=== PATIENT | female | born 1990 | race Caucasian/White ===

== ENCOUNTER 2020-01-09 09:20 | Inpatient (IN) | payer OTHER ==
[~2020-01-09] VITALS: Ht 165.1 cm; Wt 125.0 kg
--- NOTE | ~2020-01-09 | OR ---
[facility] [address] [place], [place] [address] Draft DATE OF OPERATION: 01/13/2020 SURGEON: Nae Sherman MD REHABILITATION THERAPY AIDE: Matthew Cano MD PREOPERATIVE DIAGNOSIS: Term , breech presentation. POSTOPERATIVE DIAGNOSIS: Term , breech presentation; delivered. PROCEDURE: Primary section with low segment transverse uterine incision. ANESTHESIA: Spinal. ESTIMATED BLOOD LOSS: 600 mL. DRAINS: Mckay catheter. INDICATIONS AND FINDINGS: The patient is a 29-year-old, 1, para 0, admitted at 39 weeks for primary section for breech presentation. She had a failed version approximately 2 weeks ago. At the time of surgery, she was delivered of a little boy via lower segment transverse uterine incision as a marely breech with Apgars of 9 and 9, and weight of 9 pounds 1 ounce. There was a nuchal cord x1, which was loose. DESCRIPTION OF PROCEDURE: The patient was prepped and draped in the supine position. A Pfannenstiel skin incision was made and the incision was carried down through the fascia. The incision was extended laterally. The inferior and superior fascial flaps were then created. The muscles were bluntly divided. The peritoneum opened sharply and the incision extended superiorly and inferiorly. The Frankie retractor was then placed. The uterine incision was made at the upper aspect of the peritoneal reflection. The fluid was clear at delivery. The baby was delivered to the above findings and handed off to the pediatric PATIENT NAME: ALVARO ORELLANA OPERATIVE REPORT DATE OF : 88 REPORT #: [id number] PHYSICIAN: NAE SHERMAN MD PCP: CHANELL MENDOSA MD REPORT IS CONFIDENTIAL AND NOT TO BE RELEASED WITHOUT AUTHORIZATION [facility] [address] [place], [place] [address] Draft staff in attendance. The placenta was removed manually. The uterus was explored with a lap tape assuring no remaining fragments. The edges of the incision were identified and the uterus was closed in 2 layers using 0 Monocryl. The first layer was a running locking stitch. The 2nd was a vertical imbricating stitch. An additional [id number] was required near the left angle for control of bleeding. Following this, the abdomen was irrigated, inspected, and good hemostasis was noted. The retractor was removed. The peritoneum was identified. An ACell graft was then laid over the lower segment to aid in healing. The peritoneum was then closed with a running suture of 3-0 Vicryl. The muscles were brought together in the midline with interrupted sutures of 0 Vicryl. Bleeding points were controlled with cautery. This layer was irrigated and good hemostasis was noted. ACell powder was sprinkled over the muscles to aid in healing. The fascia was then closed from each angle to the midline with a running suture of 0 Vicryl. Following this, the subcu tissue was irrigated, inspected, and bleeding points were controlled with cautery. The deep space was closed with interrupted sutures of 3-0 Vicryl. The skin was closed with tatianna. All sponge and needle counts were correct. She tolerated the procedure well and was taken to the recovery room in good condition. Nae Sherman MD PJW/MODL /[id number] cc: Matthew Cano MD Copies: MATTHEW CANO MD ~ PATIENT NAME: ALVARO ORELLANA OPERATIVE REPORT DATE OF : [birth year] REPORT #: [id number] PHYSICIAN: NAE SHERMAN MD PCP: CHANELL MENDOSA MD REPORT IS CONFIDENTIAL AND NOT TO BE RELEASED WITHOUT AUTHORIZATION
--- NOTE | 2020-01-13 11:17 | NUR ---
01/13/20 1117 Sheets,Sammie 1106 PT ARRIVED TO PACU ON RA AND VSS. PT DENIES PAIN AND NAUSEA. FBC RN AT BEDSIDE. BABY TO CHEST. IV INFUSING LR WITH 20 PIT, SITE WNL.
--- NOTE | 2020-01-14 08:44 | PR ---
[facility] [address] [facility] [place], [place] [address] Signed PP Progress Notes Datetime Report Generated by CPN: 01/14/2020 08:44 SUBJECTIVE: [id number] Pain: Within normal limits Nausea/Vomiting: Denies Flatus: Yes Vital Signs: [id number] Vital Signs: Reviewed; Within Normal Limits EXAM: [id number] Cardiovascular: Normal Respiratory: Normal Abdomen/Uterus: Abnormal Lochia: Normal Vulva/Perineum: Not Done Breasts: Not Done CVA Tenderness: Not Done Extremities: Normal Incision: Normal Progress: Normal Exam Comments: Abdomen with active BS. Fundus firm, NT @ U. H/H 9.6/29.4, WBC 10.4, plat 250k IMPRESSION/PLAN/PROCEDURES: [id number] Impression: Normal progression Other Plans: increase ambulation, shower Procedures: None Progress Notes: Doing well. Signing Physician: Nae Sherman MD Copies: ~ *Electronically Signed* 01/14/20 0844 NAE SHERMAN MD PATIENT NAME: ALVARO ORELLANA PROGRESS NOTE DATE OF : [birth year] PHYSICIAN: NAE SHERMAN MD RPT #: [id number] REPORT IS CONFIDENTIAL AND NOT TO BE RELEASED WITHOUT AUTHORIZATION
--- NOTE | 2020-01-15 07:52 | PR ---
[facility] [address] [facility] [place], [place] [address] Signed PP Progress Notes Datetime Report Generated by CPN: 01/15/2020 07:52 SUBJECTIVE: [id number] Pain: Within normal limits Nausea/Vomiting: Denies Flatus: Yes Vital Signs: [id number] Vital Signs: Reviewed; Within Normal Limits EXAM: [id number] Cardiovascular: Not Done Respiratory: Not Done Abdomen/Uterus: Abnormal Lochia: Normal Vulva/Perineum: Not Done Breasts: Not Done CVA Tenderness: Not Done Extremities: Normal Incision: Normal Progress: Normal Exam Comments: Abdomen with active BS. Fundus firm, NT @ U-1. IMPRESSION/PLAN/PROCEDURES: [id number] Impression: Normal progression Plan: Discharge Other Plans: increase ambulation, shower Procedures: None Progress Notes: Doing well. She is ready for D/C. Signing Physician: Nae Sherman MD Copies: ~ *Electronically Signed* 01/15/20 0752 NAE SHERMAN MD PATIENT NAME: ALVARO ORELLANA PROGRESS NOTE DATE OF : 88 PHYSICIAN: NAE SHERMAN MD RPT #: [id number] REPORT IS CONFIDENTIAL AND NOT TO BE RELEASED WITHOUT AUTHORIZATION
== END 2020-01-15 11:35 | disposition home or self-care (01) | DRG 788 ==
LOC: FBC 01-13 05:55
PROVIDERS: ADMIT Obstetrics & Gynecology
PROC: 10D00Z1 Extraction of Products of Conception, Low, Open Approach (ICD-10-PCS; principal; 2020-01-13 08:45)
DX: O32.1XX0 Maternal care for breech presentation, not applicable or unspecified (principal); O69.81X0 Labor and delivery complicated by cord around neck, without compression, not applicable or unspecified; Z3A.39 39 weeks gestation of pregnancy; Z37.0 Single live birth; O99.214 Obesity complicating childbirth; E66.9 Obesity, unspecified; O26.03 Excessive weight gain in pregnancy, third trimester
CPT/HCPCS: 01961; 36415; 85027; A9270; J0690; J2274; J2590; J7121

== ENCOUNTER 2020-01-20 20:51 | Emergency (ER) | payer OTHER ==
[~2020-01-20] VITALS: Ht 165.1 cm; Wt 124.7 kg
[2020-01-20] MEDS ORDERED: OXYCODONE-ACET1 EAC1 PO (21:09)
[2020-01-20] MEDS ORDERED: KEFLEX500 MG PO (22:20)
== END 2020-01-20 22:27 | disposition home or self-care (01) ==
LOC: ED 20:51
DX: N61.0 Mastitis without abscess (principal)
CPT/HCPCS: 80053; 81001; 83605; 85025; 96374; 99283-25; J0690; J7030

== ENCOUNTER 2021-10-11 15:16 | Inpatient (IN) | payer OTHER ==
[~2021-10-11] VITALS: Ht 165.1 cm; Wt 131.5 kg
--- NOTE | ~2021-10-11 | OR ---
[facility] [address] [place], [place] [address] Draft DATE OF OPERATION: 10/14/2021 SURGEON: Armando Escobar DO PROCEDURE: Repeat low-transverse . GRAPPLE CREW LEADER: Dr. Duke. BLOOD LOSS: 550 mL. COMPLICATIONS: None. FINDINGS: Normal-appearing uterus, bilaterally normal-appearing tubes and ovaries. Viable term female weighing 7 pounds 5 ounces in the SENTHIL position. Apgars 9 and 9 at 1 and 5 minutes respectively. INDICATION: The patient is a 31-year-old G2, P1-0-0-1, 39 weeks gestation, here for scheduled repeat . Risks, benefits, and alternatives were discussed and she elected to proceed. DESCRIPTION OF PROCEDURE: The patient was taken back to the operating room where spinal anesthesia was placed by COMPUTER OPERATIONS SUPERVISOR. She was given 3 g Ancef preoperatively and was positioned in supine position with a leftward tilt and prepped and draped in the normal sterile fashion. Skin incision was made with a scalpel through her prior Pfannenstiel incision and carried down to the underlying layer of fascia with Bovie cautery, cauterizing perforating vessels as they were encountered. The fascia was incised laterally with Bovie cautery and moderate scar tissue was noted. Fascial incision was extended laterally and towards midline with better visualization with Edmonds scissors. Inferior margin of fascia was then grasped and elevated with Elizabeth clamps. Underlying rectus muscles dissected off bluntly and sharply using Edmonds scissors. In a similar fashion, the superior margin of fascia was grasped and elevated with Elizabeth's and underlying rectus muscles dissected off. Due to the extent of some of the adhesions, Bovie cautery was used for this as well. Peritoneum was entered bluntly at midline and extended with lateral traction. Frankie retractor was placed. Hysterotomy was made with a scalpel and extended digitally with PATIENT NAME: ALVARO ORELLANA OPERATIVE REPORT DATE OF : 88 REPORT #: [id number] PHYSICIAN: ARMANDO ESCOBAR DO PCP: NO PRIMARY CARE PHYSICIAN REPORT IS CONFIDENTIAL AND NOT TO BE RELEASED WITHOUT AUTHORIZATION [facility] [address] [place], [place] [address] Draft superior and inferior traction. Amniotomy was performed bluntly moderate amount of clear fluid. Infant's head was brought up to the hysterotomy without any difficulty and delivered through followed by remainder of the 's body. She had a strong spontaneous cry. Cord was doubly clamped and cut and she was handed off to waiting nursery team. Cord blood was collected for type and Yolanda and placenta was delivered manually and noted to be intact with a centrally inserted three vessel cord. Uterus was cleared of clots and debris. Stay suture of 0 Monocryl was placed at the right apex and hysterotomy was closed in a double-layer closure with 0 Monocryl 1st in a running locked fashion, second in an imbricating manner. An area of oozing was noted 2 cm medial to the right apex and [id number] suture was placed with resulting hemostasis. Pelvis was suction irrigated with warm sterile saline and hemostasis was again noted. Uterus, tubes, and ovaries were inspected with findings as noted above. ACell sheet was applied over the hysterotomy. Peritoneum was closed with 2-0 Vicryl with some difficulty noted due to a midline superior omental adhesion. Rectus muscle was reapproximated with a single suture of 0 Vicryl in a simple interrupted fashion. Perforating vessels were cauterized with Bovie cautery and rectus was suction irrigated with warm sterile saline. Once noted to be hemostatic, ACell powder was applied. The fascia was closed with 0 Vicryl in a running fashion, working 1st from right apex to midline and then from left apex to midline, meeting in the middle. Subcutaneous layer was suction irrigated with warm sterile saline and perforating vessels were cauterized with Bovie cautery. This was closed with 3-0 Vicryl in a running fashion. Skin was closed with skin clips. All sponge and instrument counts were correct. Uterus was Crede'd and noted to be firm. The cervix was firmly closed and blood loss was minimal . The patient was taken to LDRP room to recover skin to skin with baby. Armando Escobar DO EMZ/MODL /[id number] Copies: ~ PATIENT NAME: ALVARO ORELLANA OPERATIVE REPORT DATE OF : 88 REPORT #: [id number] PHYSICIAN: ARMANDO ESCOBAR DO PCP: NO PRIMARY CARE PHYSICIAN REPORT IS CONFIDENTIAL AND NOT TO BE RELEASED WITHOUT AUTHORIZATION
[~2021-10-11 15:16] MED LIST: KEFLEX500 MG PO; OXYCODONE-ACET1 EAC1 PO
--- NOTE | 2021-10-14 09:24 | NUR ---
10/14/21 0924 Marilin Scott 0901 - PT TO ROOM 104 IN [facility]. SHE IS AWAKE AND ALERT, SPEKAING IN FULL SENTENCES. IV TO LEFT FOREARM INFUSING LR WITH PITOCIN WIHTOUT COMPLICATION. DRESSING CLEAN DRY AND INTACT.
--- NOTE | 2021-10-15 07:01 | PR ---
[facility] [address] [place], [place] [address] Signed PP Progress Notes Datetime Report Generated by CODY: 10/15/2021 07:01 SUBJECTIVE: [id number] Pain: Within Normal Limits Nausea/Vomiting: Denies Flatus: Yes Bowel Movement: No Vital Signs: [id number] Vital Signs: Reviewed; Within Normal Limits Notable Details: mild intermittent tachycardia, required O2 overnight while sleeping EXAM: Ongoing Cardiovascular: Normal Respiratory: Normal Abdomen/Uterus: Normal Lochia: Normal Breasts: Normal Extremities: Normal Incision: Normal Progress: Normal Exam Comments: NAD, sitting up in chair RRR No dyspnea, no retractions Abd SNTND, FFBU Incision: c/d/i, dressing in place Ext: 1+ bilateral pitting edema IMPRESSION/PLAN/PROCEDURES: [id number] Impression: Normal Progression Plan: Continue Present Management Procedures: None Progress Notes: Pt is a 31 yo POD#1 s/p RLTCS -progressing well , ambulating without assitance this am, madera removed, awaiting spontaneous void. +flatus, neg BM. Lochia moderate. Pain controlled with orals, duramorph starting to wear off. -hgb 9.0 this am, plan to start oral iron once passing bowel movements -undecided re: contraception Morbid obesity Likely ANDREA - required supplemental O2, up to 2L, while sleeping to maintain SpO2>92. *Electronically Signed* 10/15/21 0701 ARMANDO ESCOBAR DO PATIENT NAME: ALVARO ORELLANA PROGRESS NOTE DATE OF : 88 PHYSICIAN: ARMANDO ESCOBAR DO RPT #: [id number] REPORT IS CONFIDENTIAL AND NOT TO BE RELEASED WITHOUT AUTHORIZATION [facility] [address] [place] [id number] Signed Recommend follow-up sleep study Encouraged continued ambulating Plan: continue postop/ care abdominal binder for additional support, encourage ice to incision anticipate DC to home tomorrow with outpatient follow-up at 2 and 6 weeks staple removal prior to discharge Signing Physician: Armando Escobar DO Copies: ~ *Electronically Signed* 10/15/21 0701 ARMANDO ESCOBAR DO PATIENT NAME: ALVARO ORELLANA PROGRESS NOTE DATE OF : 88 PHYSICIAN: ARMANDO ESCOBAR DO RPT #: [id number] REPORT IS CONFIDENTIAL AND NOT TO BE RELEASED WITHOUT AUTHORIZATION
--- NOTE | 2021-10-16 09:55 | PR ---
[facility] [address] [facility] [place], [place] [address] Signed PP Progress Notes Datetime Report Generated by CPJared: 10/16/2021 09:55 SUBJECTIVE: [id number] Pain: Within Normal Limits Nausea/Vomiting: Denies Flatus: Yes Bowel Movement: Yes Vital Signs: [id number] Vital Signs: Reviewed; Within Normal Limits Notable Details: mild intermittent tachycardia, required O2 overnight while sleeping EXAM: Ongoing Cardiovascular: Normal Respiratory: Normal Abdomen/Uterus: Normal Lochia: Normal Vulva/Perineum: Not Done Breasts: Not Done CVA Tenderness: Normal Extremities: Normal Incision: Normal Progress: Normal Exam Comments: Fundus firm U-2 nontender IMPRESSION/PLAN/PROCEDURES: [id number] Impression: Normal Progression Plan: Discharge Procedures: None Progress Notes: Pt seen and examined. Doing well. Ambulating, voiding, and tolerating full diet. Pain and lochia minimal. well. No lightheadedness / dizziness. Desires d/c home. Reviewed d/c instructions. Unsure of contraception but considering LARC. Michi out in office in _ 2 days. Signing Physician: Katty Duke DO Copies: ~ *Electronically Signed* 10/16/21 0955 KATTY DUKE DO PATIENT NAME: ALVARO ORELLANA PROGRESS NOTE DATE OF : 88 PHYSICIAN: KATTY DUKE DO RPT #: [id number] REPORT IS CONFIDENTIAL AND NOT TO BE RELEASED WITHOUT AUTHORIZATION
== END 2021-10-16 10:30 | disposition home or self-care (01) | DRG 787 ==
LOC: FBC 10-14 04:58
PROVIDERS: ADMIT Obstetrics & Gynecology; ATTEND Obstetrics & Gynecology
PROC: 10D00Z1 Extraction of Products of Conception, Low, Open Approach (ICD-10-PCS; principal; 2021-10-14 06:45)
DX: O34.211 Maternal care for low transverse scar from previous cesarean delivery (principal); D62 Acute posthemorrhagic anemia; O99.02 Anemia complicating childbirth; O99.824 Streptococcus B carrier state complicating childbirth; O76 Abnormality in fetal heart rate and rhythm complicating labor and delivery; O99.214 Obesity complicating childbirth; G47.33 Obstructive sleep apnea (adult) (pediatric); O99.52 Diseases of the respiratory system complicating childbirth; E66.01 Morbid (severe) obesity due to excess calories; Z3A.39 39 weeks gestation of pregnancy; Z37.0 Single live birth
CPT/HCPCS: 85027; A9270; J0690; J1650; J1885; J2001; J2274; J2370; J2405; J2590; J3010; J7120; J7121